=== PATIENT | female | born 1980 | race Caucasian/White ===

== ENCOUNTER 2017-10-25 19:39 | Emergency (ER) | payer OTHER ==
[2017-10-25 19:54] VITALS: BP 140/64; PULSE 101; RESP 16; TEMP 98.8; O2SAT 100
--- NOTE | 2017-10-25 20:56 | ED PDOC ---
HPI:Nausea, Vomiting, Diarrhea Time Seen by Provider: 10/25/17 20:00 Chief Complaint (Nursing): Headache Chief Complaint (Provider): Nausea History Per: Patient History/Exam Limitations: no limitations Past Medical History Vital Signs: Last Vital Signs Temp 98.8 F 10/25/17 19:52 Pulse 101 H 10/25/17 19:52 Resp 16 10/25/17 19:52 BP 140/64 10/25/17 19:52 Pulse Ox 100 10/25/17 19:52 - Allergies Allergies/Adverse Reactions: Allergies Allergy/AdvReac Type Severity Reaction Status Date / Time Penicillins Allergy RASH Verified 10/25/17 19:52 Sulfa (Sulfonamide Allergy RASH Verified 10/25/17 19:52 Antibiotics) - ECG O2 Sat by Pulse Oximetry: 100 Disposition - Disposition
--- NOTE | 2017-10-25 21:00 | ED PDOC ---
HPI: Head Injury Time Seen by Provider: 10/25/17 20:00 Chief Complaint (Nursing): Headache Chief Complaint (Provider): Headache History Per: Patient History/Exam Limitations: no limitations Injury Occurred (Timing): Days Ago: (1) Patient States: Fell Striking Head Loss Of Consciousness: No Additional Complaint(s): 37 year old female presents to the emergency department for evaluation of a head injury. She states that yesterday while running in the kitchen she slipped on sand on the floor, and fell backwards. Patient hit her head but there was no loss of consciousness. Over the course of today she developed a worsening headache and nausea just prior to arrival. Also developed blurry vision to the left eye, which she states she experiences when she is tired. Since Wednesday, she additionally has had flu-like symptoms and went to urgent care where her flu and strep test were negative. She had a fever at the time of 102, and has been taking Tylenol and Motrin. Today, these did not relieve her headache. PMD: Dr. Elpidio Campbell Past Medical History Reviewed: Historical Data, Nursing Documentation, Vital Signs Vital Signs: Last Vital Signs Temp 98.8 F 10/25/17 19:52 Pulse 101 H 10/25/17 19:52 Resp 16 10/25/17 19:52 BP 140/64 10/25/17 19:52 Pulse Ox 100 10/25/17 20:56 - Medical History PMH: No Chronic Diseases - Surgical History Surgical History: No Surg Hx - Family History Family History: States: Unknown Family Hx - Social History Current smoker - smoking cessation education provided: No Alcohol: None Drugs: Denies - Home Medications Home Medications: Ambulatory Orders Medication Instructions Recorded Ondansetron ODT [Zofran ODT] 1 odt PO Q6 PRN #20 odt 10/25/17 Oseltamivir [Tamiflu] 75 mg PO BID #10 cap 10/25/17 - Allergies Allergies/Adverse Reactions: Allergies Allergy/AdvReac Type Severity Reaction Status Date / Time Penicillins Allergy RASH Verified 10/25/17 19:52 Sulfa (Sulfonamide Allergy RASH Verified 10/25/17 19:52 Antibiotics) Review of Systems ROS Statement: Except As Marked, All Systems Reviewed And Found Negative Constitutional: Negative for: Fever Eyes: Positive for: Vision Change (L eye- blurry vision) ENT: Positive for: Other (flu-like symptoms) Gastrointestinal: Positive for: Nausea Neurological: Positive for: Headache. Negative for: Other (LOC) Physical Exam - Reviewed Nursing Documentation Reviewed: Yes Vital Signs Reviewed: Yes - Physical Exam Appears: Positive for: Non-toxic, No Acute Distress Head Exam: Positive for: ATRAUMATIC, NORMOCEPHALIC Skin: Positive for: Warm, Dry Eye Exam: Positive for: EOMI, PERRL ENT: Positive for: Pharynx Is (clear). Negative for: Tonsillar Exudate Neck: Positive for: Painless ROM, Supple Cardiovascular/Chest: Positive for: Regular Rate, Rhythm. Negative for: Murmur Respiratory: Positive for: Normal Breath Sounds. Negative for: Wheezing Back: Positive for: Normal Inspection. Negative for: Decreased ROM Extremity: Positive for: Normal ROM. Negative for: Deformity Lymphatic: Negative for: Adenopathy Neurologic/Psych: Positive for: Alert. Negative for: Motor/Sensory Deficits - ECG O2 Sat by Pulse Oximetry: 100 (RA) Pulse Ox Interpretation: Normal Medical Decision Making Medical Decision Making: Initial Impression: Head injury, flu-like illness Time: 20:14 Initial Plan: * Urine * Urine dipstick * Tylenol 975 mg PO * Tamiflu 75 mg PO [facility] Division of Radiology [address] [place] [address] Tel. no. Patient Name: PHYLLIS JIMENEZ Pt. Address: [address] [place] [address] Rec #: [id number] [place] [address]: Mickey CABRERA, Elly Moore Pt Order Location: [facility] : 1980 Female Age: 37 Order #: [id number] Reason for exam: head injury nausea severe headache CT Scan HEAD W/O CONTRAST Exam Date: 10/25/17 This imaging exam was performed at [facility] EXAM: CT Head Without Intravenous Contrast CLINICAL HISTORY: 37 years old, female; Pain; Headache; Tension; Additional info: Head injury nausea severe headache TECHNIQUE: Axial computed tomography images of the head/brain without intravenous contrast. All CT scans at this facility use one or more dose reduction techniques, viz.: automated exposure control; ma/kV adjustment per patient size (including targeted exams where dose is matched to indication; i.e. head); or iterative reconstruction technique. Coronal and sagittal reformatted images were created and reviewed. COMPARISON: No relevant prior studies available. FINDINGS: Brain: No intracranial hemorrhage. No mass. No definite edema. Ventricles: No hydrocephalus. Bones/joints: No acute fracture. Soft tissues: Unremarkable. Sinuses: No acute sinusitis. Mastoid air cells: No mastoid effusion. Orbits: Unremarkable as visualized. IMPRESSION: 1. No definite acute intracranial abnormality. Dictated By: Abdulkadir Freeman MD Dictated Date/Time: 10/25/172204 Signed By: Abdulkadir Freeman MD Date Signed: [id number] Transcribed By: JOCELYNE Transcribe Date/Time : 10/25/172204 Scribe Attestation: Documented by Imelda Finch, acting as a scribe for Elly Arevalo MD Provider Scribe Attestation: All medical record entries made by the Scribe were at my direction and personally dictated by me. I have reviewed the chart and agree that the record accurately reflects my personal performance of the history, physical exam, medical decision making, and the department course for this patient. I have also personally directed, reviewed, and agree with the discharge instructions and disposition. Disposition - Clinical Impression Clinical Impression: Head injury, Influenza-like illness - Disposition Disposition: Routine/Home Disposition Time: 22:00 Condition: STABLE Prescriptions: Ondansetron ODT [Zofran ODT] 1 odt PO Q6 PRN #20 odt PRN Reason: Nausea/Vomiting Oseltamivir [Tamiflu] 75 mg PO BID #10 cap Instructions: Influenza (ED), Head Injury (ED) Forms: [employer] (Kiswahili)
--- NOTE | 2017-10-25 22:05 | CT ---
EXAM: CT Head Without Intravenous Contrast CLINICAL HISTORY: 37 years old, female; Pain; Headache; Tension; Additional info: Head injury nausea severe headache TECHNIQUE: Axial computed tomography images of the head/brain without intravenous contrast. All CT scans at this facility use one or more dose reduction techniques, viz.: automated exposure control; ma/kV adjustment per patient size (including targeted exams where dose is matched to indication; i.e. head); or iterative reconstruction technique. Coronal and sagittal reformatted images were created and reviewed. COMPARISON: No relevant prior studies available. FINDINGS: Brain: No intracranial hemorrhage. No mass. No definite edema. Ventricles: No hydrocephalus. Bones/joints: No acute fracture. Soft tissues: Unremarkable. Sinuses: No acute sinusitis. Mastoid air cells: No mastoid effusion. Orbits: Unremarkable as visualized. IMPRESSION: 1. No definite acute intracranial abnormality.
[2017-10-25 23:57] LABS: SQUAMOUS EPITHIAL 10 /hpf (0-5); URINE BACTERIA RARE (<OCC); URINE BILIRUBIN NEGATIVE (NEGATIVE); URINE BLOOD NEGATIVE (NEGATIVE); URINE CLARITY SLIGHTY-CLOUDY (Clear); URINE COLOR STRAW (YELLOW); URINE GLUCOSE (UA) NEG (Normal); URINE LEUKOCYTE ESTERASE NEG Leu/uL (Negative); URINE NITRATE NEGATIVE (NEGATIVE); URINE PROTEIN NEGATIVE (NEGATIVE); URINE UROBILINOGEN 0.2-1.0 mg/dL (0.2-1.0)
== END 2017-10-25 23:13 | disposition home or self-care (01) ==
LOC: H.ER 19:39
DX: S09.90XA Unspecified injury of head, initial encounter (principal); J11.1 Influenza due to unidentified influenza virus with other respiratory manifestations; W01.0XXA Fall on same level from slipping, tripping and stumbling without subsequent striking against object, initial encounter